=== PATIENT | male | born 1990 | race Caucasian/White ===

== ENCOUNTER → 2019-04-12 | Outpatient (CLI) | payer BC ==
[2019-04-12 15:43] LABS: ALBUMIN 4.3 g/dL (3.5-5.0); POTASSIUM 3.6 mmol/L (3.5-5.1)
[2019-04-12 15:44] LABS: CALCIUM 9.7 mg/dL (8.3-10.5)
[2019-04-12 15:45] LABS: TOTAL PROTEIN 7.9 g/dL (6.4-8.3)
[2019-04-12 15:47] LABS: TOTAL BILIRUBIN 0.5 mg/dL (0.2-1.2)
== END ==
LOC: LAB 15:11
DX: R11.0 Nausea (principal); R15.2 Fecal urgency; R19.7 Diarrhea, unspecified

== ENCOUNTER → 2019-04-21 | Day surgery (SDC) | payer BC | LOC: MSO 08:38 → LAB 08:38 → MSO 14:18 | DX: R19.7 Diarrhea, unspecified (principal); R10.32 Left lower quadrant pain; K76.0 Fatty (change of) liver, not elsewhere classified | CPT/HCPCS: 00811; J2704; J3010; J7120 ==